=== PATIENT | male | born 1960 | race Caucasian/White ===

== ENCOUNTER 2018-08-22 14:42 | Outpatient (REF) | payer MEDICAID, SELFPAY ==
[2018-08-22 20:13] LABS: Folate 9.9 ng/mL (8.6-20.0); Vitamin B12 370 pg/mL (193-986)
[2018-08-24 12:32] LABS: HSV Type 1 Ab, IgG Positive; HSV Type 2 Ab, IgG Negative
== END 2018-08-22 15:02 ==
LOC: NCHCN 14:42
PROVIDERS: PCP Physician Assistant; Visit Provider Internal Medicine
DX: F10.20 Alcohol dependence, uncomplicated (principal); A60.00 Herpesviral infection of urogenital system, unspecified; Z11.59 Encounter for screening for other viral diseases
CPT/HCPCS: 82607; 82746; 86695; 86696

== ENCOUNTER 2019-03-08 08:27 | Outpatient (REF) | payer MEDICAID, SELFPAY ==
[2019-03-08 20:10] LABS: HCT 42.6 % (40.0-50.0); HGB 14.2 g/dL (13.5-17.5); Mean Corp. HGB Concentration 33.3 g/dL (32.0-36.0); Mean Corpuscular Hemoglobin 29.7 pg (27.0-33.0); Mean Corpuscular Volume 89.1 fL (80-95); Mean Platelet Volume 13.4 fL (8.0-11.0); Platelet Count 117 x1000/uL (130-400); RBC 4.78 m/cumm (4.50-6.00); RBC Distribution Width 14.2 % (11.8-14.1); White Blood Cell Count 3.36 k/cumm (4.4-10.8)
[2019-03-08 20:26] LABS: ALT 47 U/L (12-78); AST 36 U/L (15-37); Albumin 3.9 g/dL (3.4-5.0); Alkaline Phosphatase 80 U/L (46-116); BUN 12 mg/dL (7-18); Bilirubin, Total 0.5 mg/dL (0.2-1.0); CREATININE 0.95 mg/dL (0.70-1.30); Calcium 8.8 mg/dL (8.5-10.1); Chloride 107 mmol/L (98-107); Glucose 88 mg/dL (70-100); Potassium 4.4 mmol/L (3.5-5.1); Sodium 142 mmol/L (136-145); Total Protein 6.1 g/dL (6.4-8.2)
[2019-03-10 10:36] LABS: Hepatitis C Ab w Rflx HCV PCR Negative (NEGAT)
[2019-03-10 10:46] LABS: HIV-1/2 Ag & Ab Screen Negative (NEGAT)
[2019-03-10 12:32] LABS: Chlamydia Result Negative; GC Result Negative; Specimen Description URINE
[2019-03-10 12:34] LABS: Syphilis Serology (RPR) Negative (Negative)
== END 2019-03-08 08:47 ==
LOC: NCHCN 08:27
PROVIDERS: PCP Physician Assistant; Visit Provider Physician Assistant Medical
DX: I10 Essential (primary) hypertension (principal); Z11.3 Encounter for screening for infections with a predominantly sexual mode of transmission; Z11.4 Encounter for screening for human immunodeficiency virus [HIV]; Z11.59 Encounter for screening for other viral diseases
CPT/HCPCS: 80053; 85027; 86803; 87389; 87491; 87591; 86592

== ENCOUNTER 2019-04-27 09:32 | Outpatient (REF) | payer MEDICAID, SELFPAY ==
[2019-04-27 18:52] LABS: Absolute Basophil Count 0.02 k/cumm (0.0-0.2); Absolute Eosinophil Count 0.12 k/cumm (0.0-0.7); Absolute Lymphocyte Count 1.09 k/cumm (1.2-3.4); Absolute Monocyte Count 0.38 k/cumm (0.11-0.7); Absolute Neutrophil Count 2.22 k/cumm (1.2-6.7); Basophils % 0.5; Eosinophils % 3.1; HCT 42.9 % (40.0-50.0); Lymphocytes % 28.5; Mean Corpuscular Hemoglobin 29.9 pg (27.0-33.0); Mean Corpuscular Volume 85.5 fL (80-95); Mean Platelet Volume 13.3 fL (8.0-11.0); Monocytes % 9.9; Platelet Count 147 x1000/uL (130-400); RBC 5.02 m/cumm (4.50-6.00); RBC Distribution Width 12.3 % (11.8-14.1); White Blood Cell Count 3.83 k/cumm (4.4-10.8)
== END 2019-04-27 09:52 ==
LOC: NCHCN 09:32
PROVIDERS: PCP Physician Assistant; Visit Provider Internal Medicine
DX: D69.6 Thrombocytopenia, unspecified (principal)
CPT/HCPCS: 85025

== ENCOUNTER 2019-08-15 13:02 | Outpatient (REF) | payer MEDICAID, SELFPAY ==
[2019-08-15 20:01] LABS: Anion Gap 8.7 mmol/L (3-11); BUN 9 mg/dL (7-18); CO2 27.3 mmol/L (21.0-32.0); CREATININE 0.91 mg/dL (0.70-1.30); Calcium 8.9 mg/dL (8.5-10.1); Chloride 109 mmol/L (98-107); Glucose 96 mg/dL (74-106); Magnesium 1.9 mg/dL (1.8-2.4); Potassium 4.1 mmol/L (3.5-5.1); Sodium 145 mmol/L (136-145); Vitamin B12 631 pg/mL (193-986)
[2019-08-15 20:06] LABS: Folate > 20.0 ng/mL (8.6-20.0)
== END 2019-08-15 13:22 ==
LOC: NCHCN 13:02
PROVIDERS: PCP Physician Assistant; Visit Provider Nurse Practitioner Family
DX: I10 Essential (primary) hypertension (principal); F10.20 Alcohol dependence, uncomplicated
CPT/HCPCS: 80048; 82607; 82746; 83735

== ENCOUNTER 2020-08-28 09:47 | Outpatient (REF) | payer MEDICAID, SELFPAY ==
[2020-08-28 21:08] LABS: Anion Gap 7.6 mmol/L (3-11); BUN 14 mg/dL (7-18); CO2 28.4 mmol/L (21.0-32.0); CREATININE 1.03 mg/dL (0.70-1.30); Calcium 9.2 mg/dL (8.5-10.1); Chloride 105 mmol/L (98-107); Glucose 103 mg/dL (74-106); Potassium 4.4 mmol/L (3.5-5.1); Sodium 141 mmol/L (136-145)
[2020-08-29 17:45] LABS: PSA, Screening 0.8 ng/mL (0.0-3.5)
== END 2020-08-28 10:07 ==
LOC: NCHCN 09:47
PROVIDERS: PCP Physician Assistant; Visit Provider Nurse Practitioner Family
DX: I10 Essential (primary) hypertension (principal); Z12.5 Encounter for screening for malignant neoplasm of prostate
CPT/HCPCS: 80048; 84153

== ENCOUNTER 2022-06-25 21:16 | Outpatient (REF) | payer MEDICAID, SELFPAY ==
[2022-06-25 19:58] LABS: ALT 38 U/L (16-63); AST 31 U/L (15-37); Albumin 4.3 g/dL (3.4-5.0); Alkaline Phosphatase 55 U/L (46-116); Anion Gap 7.7 mmol/L (3-11); BUN 17 mg/dL (7-18); Bilirubin, Total 0.8 mg/dL (0.2-1.0); CO2 28.3 mmol/L (21.0-32.0); Calcium 9.4 mg/dL (8.5-10.1); Chloride 102 mmol/L (98-107); Estimated GFR 86.16 (mL/min/1.73m2); Glucose 91 mg/dL (74-106); Potassium 4.5 mmol/L (3.5-5.1); Sodium 138 mmol/L (136-145); Total Protein 7.3 g/dL (6.4-8.2); Vitamin B12 522 pg/mL (193-986)
== END 2022-06-25 21:17 | disposition home or self-care (01) ==
LOC: NCHCN 21:16
PROVIDERS: PCP Physician Assistant; Visit Provider Nurse Practitioner Family
DX: F10.21 Alcohol dependence, in remission (principal); R53.83 Other fatigue
CPT/HCPCS: 80053; 82607

== ENCOUNTER 2024-01-13 18:01 | Outpatient (REF) | payer MEDICAID, SELFPAY ==
[2024-01-13 19:18] LABS: HCT 44.9 % (40.0-50.0); HGB 15.4 g/dL (13.5-17.5); MCH 28.9 pg (27.0-33.0); MCHC 34.3 % (32.0-36.0); MCV 84 fL (80-95); MPV 12.5 fL (8.0-11.0); Platelet Count 148 10^3/uL (130-400); RBC 5.32 10^6/uL (4.36-5.78); RDW 12.9 % (11.8-14.1); RDW-SD 39.5 fL; WBC 7.77 10^3/uL (4.4-10.8)
[2024-01-13 19:35] LABS: Glucose 89 mg/dL (74-106); TSH 1.64 uIU/Ml (0.36-3.74); Uric Acid 7.1 mg/dL (3.5-7.2)
== END 2024-01-13 18:02 | disposition home or self-care (01) ==
LOC: NCHCN 18:01
PROVIDERS: PCP Physician Assistant; Visit Provider Internal Medicine
DX: R53.83 Other fatigue (principal); M10.9 Gout, unspecified; E66.3 Overweight
CPT/HCPCS: 82947; 85027; 84443; 84550

== ENCOUNTER 2024-04-07 14:51 | Outpatient (REF) | payer OTHER, SELFPAY ==
--- OUTSIDE RECORDS SUMMARY | 2024-04-07 14:52 | XMS_ITS | Encounter Summary ---
Author Organization [facility] Address [address] [place] [address] Care Team Providers Care Fast Food Crew Member Name Role Phone Judson Mendoza MD Primary Care Provider [phone] Encounter Details Date Type Department Care Team (Late st Contact Info) Description 08/29/2020 Lab Requisition [facility] Pathology & Laboratory Medicine - [address] [id number] Outr Resulting Lab, Provider Social History Tobacco Use Types Packs/Day Years Used Date Smoking Tobacco: Never Assessed Interpersonal Safety Answer Date Record ed Physically Hurt Never 04/22/2020 Verbally Threaten Not on file 04/22/2020 Sex and Gender Information Value Date Recorded Sex Assigned at Not on file Gender Identity Not on file Sexual Orientation Not on file documented as of this encounter Plan of Treatment Not on file documented as of this encounter Procedures Procedure Name Priority Date/Time Associated Diagnosis Comments PSA TOTAL, DIAGNOSTIC Routine 08/28/2020 8:30 EST documented in this encounter Results * PSA TOTAL, DIAGNOSTIC (08/28/2020 8:30 EST) PSA 0.8 0.0 - 3.5 ng/mL 08/29/2020 17:40 EST [facility] Blood VENOUS BLOOD / Unknown 08/28/2020 8:30 EST 08/29/2020 16:22 EST Narrative [facility] - 08/29/2020 17:40 EST NOTE: Serum PSA concentration should not be interpreted as absolute evidence for the presence or absence of malignant disease. Assayed on Siemens ADVIA Centaur XPT using chemiluminescent technology.??Values obtained by using different assay methods cannot be used interchangeably. Provider Outr Resulting Lab CHEMISTRY & BLOOD GAS ORDERABLES [facility] [address] [place] [address] documented in this encounter Visit Diagnoses Not on filedocumented in this encounter Care Teams Fast Food Crew Member Relationship Specialty Start Date End Date Judson Mendoza MD [address] [place] [address] PCP - General 06/07/17 documented as of this encounter
--- OUTSIDE RECORDS SUMMARY | 2024-04-07 14:52 | XMS_ITS | Clinical Summary ---
Author Organization [facility] Address [address] [place] [id number] Care Team Providers Care Trade Analyst Name Role Phone Judson Mendoza MD Primary Care Provider [phone] Medications Medication Sig Dispensed Refills Start Date End Date Status diazePAM (VALIUM) 10 mg tablet Take according to [facility] protocol to be filled by Act I staff only 15 Tab 06/07/2017 Active Active Problems No known active problems Social History Tobacco Use Types Packs/Day Years Used Date Smoking Tobacco: Never Assessed Interpersonal Safety Answer Date Record ed Physically Hurt Never 04/22/2020 Verbally Threaten Not on file 04/22/2020 Sex and Gender Information Value Date Recorded Sex Assigned at Not on file Gender Identity Not on file Sexual Orientation Not on file Last Filed Vital Signs Vital Sign Reading Time Taken Comments Blood Pressure 144/88 06/07/2017 1040 EDT Pulse 76 06/07/2017 1040 EDT Temperature 36.5 ??C (97.7 ??F) 06/07/2017 1040 EDT Respiratory Rate 16 06/07/2017 1040 EDT Oxygen Saturation 98% 06/07/2017 1040 EDT Inhaled Oxygen Concentration - - Weight - - Height - - Body Mass Index - - Plan of Treatment Health Maintenance Due Date Last Done Comments Hepatitis C Screen 1960 RSV Immunization ( o r 60+ Years) (1 - 1-dose 60+ series) 2021 COVID-19 Vaccine ( - 2022-24 season) 2023 Care Teams Trade Analyst Relationship Specialty Start Date End Date Judson Mendoza MD [address] [place], [place] [address] [facility] - General 06/07/17
--- OUTSIDE RECORDS SUMMARY | 2024-04-07 14:52 | XMS_ITS | Encounter Summary ---
Author Organization [facility] Address [address] [place] [address] Care Team Providers Care Rodding Machine Tender Name Role Phone Judson Mendoza MD Primary Care Provider [phone] Reason for Visit * Reason Comments Act 1 Clearance Patient arrives for Act 1 clearance. States his last drink was an hour ago. Currently drinking about a 12 pack per day. Encounter Details Date Type Department Care Team (Late st Contact Info) Description 06/07/2017 10:37 EDT - 06/07/2017 12:35 EDT Emergency [facility] Emergency Department - [address] [address] Alcon Kothari, PA-C [address] [place] [address], [address] [place] [phone] Emergency, MD Hilda Alcohol abuse (Primary Dx) Discharge Disposition: Discharged to Other Facility Social History Tobacco Use Types Packs/Day Years Used Date Smoking Tobacco: Never Assessed Sex and Gender Information Value Date Recorded Sex Assigned at Not on file Gender Identity Not on file Sexual Orientation Not on file documented as of this encounter Last Filed Vital Signs Vital Sign Reading Time Taken Comments Blood Pressure 144/88 06/07/2017 1040 EDT Pulse 76 06/07/2017 1040 EDT Temperature 36.5 ??C (97.7 ??F) 06/07/2017 1040 EDT Respiratory Rate 16 06/07/2017 1040 EDT Oxygen Saturation 98% 06/07/2017 1040 EDT Inhaled Oxygen Concentration - - Weight - - Height - - Body Mass Index - - documented in this encounter Discharge Diagnoses Diagnosis F10.10 Alcohol abuse, uncomplicated-F10.10[ICD-10-CM] documented in this encounter Discharge Instructions * Discharge Instructions* Alcon Kothari PA - 06/07/2017 12:22 EDT Medically cleared for Act I * Attachments The following attachments cannot be sent through Care Everywhere. * ALCOHOL - DRUG - OR POISON INGESTION (CHILEAN) documented in this encounter Medications at Time of Discharge Medication Sig Dispensed Refills Start Date End Date diazePAM (VALIUM) 10 mg tablet Take according to [facility] protocol to be filled by Act I staff only 15 Tab 06/07/2017 documented as of this encounter Ordered Prescriptions Prescription Sig Dispensed Refills Start Date End Da te diazePAM (VALIUM) 10 mg tablet Take according to [facility] protocol to be filled by Act I staff only 15 Tab 06/07/2017 documented in this encounter Discharge Disposition Disposition Code Departure Means Destination Discharged to Other Facility Home documented in this encounter ED Notes * Ирина Hill RN - 06/07/2017 1235 EDT D/C to [facility]. Awaiting transport in [facility]. Security has paperwork for the patient to be given to [facility] staff. * Alcon Kothari PA - 06/07/2017 1216 EDT DOS: 06/07/2017 Chief Complaint Patient presents with ??? Act 1 Clearance Patient arrives for Act 1 clearance. States his last drink was an hour ago. Currently drinking about a 12 pack per day. HPI The patient is a 56 y.o. male who presents today with Act 1 Clearance (Patient arrives for Act 1 clearance. States his last drink was an hour ago. Currently drinking about a 12 pack per day.) HPI Comments: 56-year-old male is sent here for Act I clearance. Patient drinks approximately 12 beers a day last drinking approximately an hour prior to my evaluation. He hassymptoms at this time. He states he may have had an alcoholic withdrawal seizure approximately 20 years ago but has never had one since. He has had hard withdrawals with shakiness nausea and vomiting. The history is provided by the patient. Act 1 Clearance Primary symptoms include no confusion. Pertinent negatives include no fever. Review of Systems Review of Systems Constitutional: Negative for chills and fever. HENT: Negative for congestion, sore throat and trouble swallowing. Eyes: Negative. Respiratory: Negative for chest tightness and shortness of breath. Cardiovascular: Negative. Negative for chest pain, palpitations and leg swelling. Gastrointestinal: Negative for abdominal distention and abdominal pain. Endocrine: Negative. Genitourinary: Negative. Negative for dysuria and flank pain. Musculoskeletal: Negative. Negative for arthralgias. Skin: Negative. Negative for color change and rash. Allergic/Immunologic: Negative. Negative for immunocompromised state. Neurological: Negative. Negative for dizziness and headaches. Hematological: Negative. Negative for adenopathy. Does not bruise/bleed easily. Psychiatric/Behavioral: Negative. Negative for confusion. All other systems reviewed and are negative. Allergies not on file Vital Signs Temp: 36.5 ??C (97.7 ??F) Temp src: Oral Pulse: 76 Resp: 16 SpO2: 98 % BP: (!) 144/88 BP Device: BP Machine Patient Position: Sitting BP Cuff Location: Right arm O2 Device: None (Room air) Physical Exam Constitutional: He is oriented to person, place, and time. He appears well- developed and well-nourished. HENT: Head: Normocephalic and atraumatic. Right Ear: External ear normal. Left Ear: External ear normal. Nose: Nose normal. Mouth/Throat: Oropharynx is clear and moist. Eyes: Pupils are equal, round, and reactive to light. Right eye exhibits no discharge. Left eye exhibits no discharge. Neck: Normal range of motion. Neck supple. No tracheal deviation present. Cardiovascular: Normal rate, regular rhythm and normal heart sounds. Pulmonary/Chest: Effort normal and breath sounds normal. No respiratory distress. He has no wheezes. He has no rales. Abdominal: Soft. He exhibits no distension. There is no tenderness. There is no rebound. Musculoskeletal: Normal range of motion. Neurological: He is alert and oriented to person, place, and time. He has normal strength. He is not disoriented. No cranial nerve deficit or sensory deficit. Coordination normal. Skin: Skin is warm and dry. No rash noted. Psychiatric: He has a normal mood and affect. His behavior is normal. Nursing note and vitals reviewed. RESULTS EKG orders: None Radiology orders: None ED Lab Results Labs Reviewed - No data to display Relevant Data Procedures ED COURSE A medical screening exam was performed. Patient is stable appearing in no acute distress quickly cleared for Act I ASSESSMENT AND PLAN Final diagnoses: Alcohol abuse DISPOSITION: Discharged The patient's pain was managed to an adequate level weighing risk vs. benefit of further medications. Upon departure from the Emergency Department, the patient's pain was on a zero to ten scale. Any further pain treatment will be at the discretion of the provider following up with the patient based on their clinical assessment. Condition at departure from the Emergency Department: Stable PCP: To Be Added Waiting MDM Ely Rondon was available for supervision. 06/07/2017 12:27 No flowsheet data found. * Favio Lorenzana - 06/07/2017 1038 EDT TCALL: HENRY BRIDGES 62 REFERRED TO ED BY MACHO FROM [facility] 1 FOR BRIDGE PROGRAM CLEARANCE. ALCOHOL DETOX, CURRENT GATO .205. (DJP) documented in this encounter Plan of Treatment Not on file documented as of this encounter Visit Diagnoses Diagnosis Alcohol abuse- Primary Alcohol abuse, unspecified documented in this encounter Care Teams Rodding Machine Tender Relationship Specialty Start Date End Date Judson Mendoza MD [address] [place] [id number] PCP - General 06/07/17 documented as of this encounter
--- OUTSIDE RECORDS SUMMARY | 2024-04-07 14:52 | XMS_ITS | Referral Summary ---
Author Organization [facility] Address [address] [place] [address] Care Team Providers Care Grill Associate Name Role Phone Judson Mendoza MD Primary Care Provider [phone] Medications Medication Sig Dispensed Refills Start Date End Date Status diazePAM (VALIUM) 10 mg tablet Take according to [facility] protocol to be filled by Act I [...] Mass Index - - Plan of Treatment Not on file Care Teams Grill Associate Relationship Specialty Start Date End Date Judson Mendoza MD [address] [place] [address] PCP - General 06/07/17
--- OUTSIDE RECORDS SUMMARY | 2024-04-07 14:53 | XMS_ITS | Continuity of Care Document ---
Author Organization [place] [facility] Address [address] [place] [address] Care Team Providers Care Engraving Patternmaker Name Role Phone RUBEN TOURE Dentist KIAH CLAYTON Primary Care Provider [phone] Assessment Encounter Date Assessment Date Assessment LastModified by Organization Details LastModified Time 04/07/2024 04/07/2024 The patient presents with a bump on the left knee, which is likely a fluid-filled bursa over the patella. The bursa has likely become irritated and filled with fluid due to chronic pressure from kneeling at work without proper protection. There is no sign of infection at this time. [email or web address] Not available 04/07/2024 14:44:34 Plan of Treatment Reminders Order Date Submit Date Provider Last Modified By Organization Details Last Modified Time Details Appointments Follow Up 30 2023 09:00A Chari LEÓN Not available Not available Not available Lab culture, body fluid - bloody fluid removed from prepatell ar bursitis, 4cc's removed 2023 024 ATHENAFAX [facility] (Registration ), [address] [place] [address] [place], [address], 04/07/2024 12:05:25 Referral None recorded. Procedures None recorded. Surgeries None recorded. Imaging None recorded. Medication Orders None recorded. Patient TargetsNo targets recorded. Patient Instructions Encounter Date Encounter Id Patient Instructions Last Modified By Organization Details Last Modified Time 04/07/2024 [id number] diet [email or web address] Not available 04/07 14:45:30 exercise [email or web address] Not available 2023 14:45:30 Reason for Referral None Reported. Problems Name Status Onset Date Resolution Date Notes Provider Name and Address Organization Details Recorded Time Right side sciatica Active 2015 Problem Code: M54.31; Problem Code Type: ICD-10; Not Available [facility] 3 05:39:18 Diabetes mellitus screening Completed 201512/17/2015 Problem Code: Z13.1; Problem Code Type: ICD-10; Not Available [facility] 3 05:39:18 Osteoarthriti s Active 2015 Problem Code: M19.90; Problem Code Type: ICD-10; Not Available [facility] 3 05:39:18 Gout Active 201303/29/2023 - Comments only - Kiah Clayton REPAIRER PUMP - s/p recent flare treated with colchicine and feeling much better. ? related to increased heat and humidity and poor hydration. Refill of colchicine given to use in the future. Encouraged good hydration while working in this heat. Avoid processed foods. Problem Code: M10.9; Problem Code Type: ICD-10; Not Available [facility] 3 05:39:18 General examination of patient Active 2016 Problem Code: Z00.8; Problem Code Type: ICD-10; Not Available [facility] 3 05:39:18 Chronic sinusitis Completed 201612/15/2016 Problem Code: J32.9; Problem Code Type: ICD-10; Not Available [facility] 3 05:39:18 Candidal balanitis Completed 201612/15/2016 Problem Code: B37.42; Problem Code Type: ICD-10; Not Available [facility] 3 05:39:19 Lateral epicondylitis of right humerus Completed 201608/27/2017 02/25/2017 - Comments only - Aydin Mcgrath PA-C - History and exam consistent with right lateral epicondylitis . Recommended home exercises. Patient instructed on stretching. Also ice, activity modification. Reviewed pathophysiolo gy and expected course. If not improving with conservative therapy then physical therapy referral. Problem Code: M77.11; Problem Code Type: ICD-10; Not Available [facility] 3 05:39:19 Anxiety disorder Active 201612/27/2019 - Comments only - Chelsey Vargas APRN - Reduction in OCD symptoms and overall worry daily. Reports response to the antidepressan t and I cautioned him about stopping it, as this would put him at risk for relapsing symptoms. Problem Code: F41.9; Problem Code Type: ICD-10; Not Available [facility] 3 05:39:19 Moderate major depression, single episode Active 201712/27/2019 - Comments only - Chelsey Vargas APRN - Reports he is realtively stable at this time. Denies ETOH use for several months and he is working He has declined counseling and AA meetings atre only on line currently. will send him the [employer] LINK number for resources. He continues Mirtazapine and feels it has helped with mood and anxiety. OCD symptoms reduced and he feels he can do his job well. His daughter is living with him and is a support in some ways. Problem Code: F32.1; Problem Code Type: ICD-10; Not Available [facility] 3 05:39:19 Rupture of rotator cuff of right shoulder Completed 201709/27/2018 01/25/2018 - Comments only - Aydin Mcgrath PA-C - Suspect rotator cuff tendinitis. Referral to physical therapy. If not better then consider injection and imaging. Problem Code: M75.101; Problem Code Type: ICD-10; Not Available [facility] 3 05:39:19 Benign prostatic hyperplasia Active 2017 Problem Code: N40.0; Problem Code Type: ICD-10; Not Available [facility] 3 05:39:20 Herpesvirus infection Active 201708/24/2018 - Comments only - Keturah Mendoza MD - Suspect that his impetigo is actually herpetic. However been unroofed for too long to get culture. Will get serology although I told him there are limitations to that. Too late for acyclovir to be helpful for this course. Problem Code: A60.00; Problem Code Type: ICD-10; Not Available [facility] 3 05:39:20 Lesion of left femoral nerve Completed 201806/15/2019 12/13/2018 - Comments only - Aydin Mcgrath PA-C - Suspect this is from pressure of sitting for long periods of time. Should resolve over 2-4 weeks. Recheck as needed. He is due for annual review. He will schedule. Problem Code: G57.22; Problem Code Type: ICD-10; Not Available [facility] 3 05:39:20 Venereal disease screening Completed 201804/12/2019 03/01/2019 - Comments only - Aydin Mcgrath PA-C - Patient requesting STD screening. Did recently from his . Problem Code: Z11.3; Problem Code Type: ICD-10; Not Available [facility] 3 05:39:20 Lumbosacral radiculopathy Completed 201810/05/2019 09/15/2019 - Comments only - Chelsey Vargas APRN - Chronic pain. Feels Gabapentin is not helpful at this time and has stopped it. This may be dose related and I have encouraged him to speak to his medical provider about options to dose increase. Problem Code: M54.16; Problem Code Type: ICD-10; Not Available [facility] 3 05:39:20 Thrombocytope sukhjinder disorder Active 201804/04/2019 - Comments only - Aydin Mcgrath PA-C - Repeat blood count 1 month from now. Suspect this was related to his alcohol use. Problem Code: D69.6; Problem Code Type: ICD-10; Not Available [facility] 3 05:39:20 Left side sciatica Active 201804/11/2019 - Comments only - Keturah Mendoza MD - I have not been drinking in 2 months I think he can take Celebrex safely. Can temporarily use it 200 mg twice daily. Warned to watch for GI upset. Can also use cyclobenzapri ne at night. Reassurance that this is likely to improve over time but it may be weeks to months. Too soon to consider reimaging. Try to stay as active as tolerated. Problem Code: M54.32; Problem Code Type: ICD-10; Not Available [facility] 3 05:39:21 Leukopenia Active 2018 Problem Code: D72.819; Problem Code Type: ICD-10; Not Available [facility] 3 05:39:21 Hypo-osmolali ty and or hyponatremia Active 201808/14/2019 - Comments only - Loni Becerra REPAIRER PUMP - Secondary to alcohol abuse. We will recheck sodium next week. I have encouraged him to drink 1 glass of V8 juice daily. Problem Code: E87.1; Problem Code Type: ICD-10; Not Available [facility] 3 05:39:21 Seasonal allergic rhinitis Active 201905/04/2020 - Comments only - Loni Becerra REPAIRER PUMP - His symptoms of feeling a bit in a fog and having some ear pressure could be from allergies and a bit of a bilateral serous effusion. Trial of loratadine. He can also try Flonase if he would like. He would like to start with the loratadine. He has not had any fevers, cough or shortness of breath. I do not think he needs to be tested today for coronavirus. If anything changes he will let me know and we are going to follow-up in 3 months. Problem Code: J30.2; Problem Code Type: ICD-10; Not Available [facility] 3 05:39:21 Sleep disorder Active 202001/17/24 - O2 ring normal overnight. DION unlikelyt though other sleep issues could be present. 02/17/2022 - Comments only - Kiah Clayton REPAIRER PUMP - encouraged completion of sleep study Problem Code: G47.9; Problem Code Type: ICD-10; KETURAH MENDOZA MD [address], [place], [address] , [place] [facility]. 4 10:17:04 Low back pain Active 202008/20/2021 - Comments only - Kiah Clayton REPAIRER PUMP - Will give short course of cyclobenzapri ne, not to operate heavy machinery if using. Try heat, ice, reviewed gentle stretching exercises, encouraged continued activity. Offered OOW note, he declines Problem Code: M54.59; Problem Code Type: ICD-10; Not Available [facility] 3 05:39:22 History of cardiovascula r disease Active 202008/20/2021 - Comments only - Kiah Clayton REPAIRER PUMP - Down 12 pounds since last visit. Had been running 2 miles every day all summer, now doing 8 miles on the stationary bike and eating a healthy diet. Blood pressure has been well controlled with out medication. Problem Code: Z86.79; Problem Code Type: ICD-10; Not Available [facility] 3 05:39:22 Chronic alcoholism in remission Active 202002/17/2022 - Comments only - Kiah Clayton REPAIRER PUMP - continues in sobriety Problem Code: F10.21; Problem Code Type: ICD-10; Not Available [facility] 3 05:39:22 Laceration of left thumb Completed 202111/27/2021 11/26/2021 - Comments only - Carol SWAN - - area of concern was flushed, no foreign body identified and no obvious damage to tendon. 3 steri-strips applied using benzoin. advised pt to keep clean and dry for 24-48 hours. clean dressing applied. advised pt to let the steri-strips fall off on their own which can take 7-10 days. discussed s/s of infection. Return to clinic if not improving or worsening symptoms Problem Code: S61.012A; Problem Code Type: ICD-10; Not Available [facility] 3 05:39:22 Hyperlipidemi a screening Active 202102/17/2022 - Comments only - Kiah Clayton REPAIRER PUMP - Check lipids, is eating healthy diet, down 4.5 pounds, working a physically demanding job Problem Code: Z13.220; Problem Code Type: ICD-10; Not Available [facility] 3 05:39:23 Nocturia Active 202109/03/2022 - Comments only - Kiah Clayton REPAIRER PUMP - Has not yet tried increase in Flomax. Will let me know if no improvement Problem Code: R35.1; Problem Code Type: ICD-10; Not Available [facility] 3 05:39:23 Fatigue Active 2021 Problem Code: R53.83; Problem Code Type: ICD-10; Not Available [facility] 3 05:39:23 Heartburn Active 202109/03/2022 - Comments only - Kiah Clayton REPAIRER PUMP - Improved with d/c of caffeniated, carbonated beverage and start of omeprazole. Discussed taper off omeprazole as tolerated. Did give him one refill. 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; Problem Code Type: ICD-10; Not Available [facility] 3 05:39:24 Alcohol abuse Completed 200106/16/2023 Not Available [facility] 3 05:39:25 Disorder of skin and/or subcutaneous tissue Completed 201503/01/2019 Problem Code: L98.9; Problem Code Type: ICD-10; Not Available [facility] 3 05:39:26 History of clinical finding in subject Completed 200103/01/2019 Problem Code: Z87.898; Problem Code Type: ICD-10; Not Available [facility] 3 05:39:29 Screening for malignant neoplasm of prostate Completed 201908/20/2021 Problem Code: Z12.5; Problem Code Type: ICD-10; Not Available [facility] 3 05:39:30 Hypertensive disorder Completed 200106/16/2023 Not Available [facility] 3 05:39:31 Pain in right hand Completed 201603/01/2019 Problem Code: M79.641; Problem Code Type: ICD-10; Not Available [facility] 3 05:39:31 Essential hypertension Completed 200108/20/2021 Problem Code: I10; Problem Code Type: ICD-10; Not Available [facility] 3 05:39:32 Alcohol dependence Completed 201703/01/2019 Problem Code: F10.259; Problem Code Type: ICD-10; Not Available [facility] 3 05:39:37 Acquired trigger finger Active [address], [place] [id number] , [facility] 4 15:21:01 Obesity Active [address], [address] 4 18:05:12 Notes:*Problem Name: Penetra ting wound of orbit with or without foreign body, left eye, initial encounter *Problem Status: active *Comments: *Problem Code: S05.42xA *Problem Code Type: ICD-10 *Note Date: 03/09/2023 Problem Notes None recorded. Procedures Surgical History Date Name Laterality Status Provider Name and Address Organization Details Recorded Time 04/07/20 24 Arthrocentesis Major Joint/Bursa completed MIHAELA [address] Dr, [address] 04/07/2024 14:44:07 11/18/19 24 Corticosteroid Injection, small completed MD Jonny CARRASCO Dr, [address] 11/18/2023 15:41:46 Imaging Results None recorded. Procedure Notes None recorded. Medical Equipment None Reported. Allergies Allergen ID Allergen Name Allergen Category Reaction Reaction Severity Criticality Documentation Date Start Date Code Code System Note Provider Name and Address Organization Details Recorded Time 18719 ibuprofen medicatio n hives moderate Not available 07/30/20232010 5640 RxNorm urtic aria Pat bains [facility] 4 14:45:45 Medications Name Sig Start Date Stop Date Status Note LastModified by Organization Details LastModified Time cyclobenz aprine 10 mg tablet Take 1 tab by mouth at bedtime as needed for back spasm 05/18 completed Not Available Not Available Not Available Flomax 0.4 mg capsule Take 1 capsule by mouth every night 07/29 completed Not Available Not Available Not Available prednison e 10 mg tablet 4 tabs x 3 days, 3 tabs x 3 days, 2 tabs x 3 days and 1 tab x 3 days 04/10 completed Not Available Not Available Not Available doxycycli ne hyclate 100 mg capsule Take 2 capsule by mouth single dose 03/06 completed Not Available Not Available Not Available hydrocodo ne 5 mg-acetam inophen 325 mg tablet Take 1 tab by mouth four times daily as needed for pain 12/29 completed Not Available Not Available Not Available naltrexon e 50 mg tablet One tablet once a day 04/10 completed Not Available Not Available Not Available Medrol (Roger) 4 mg tablets in a dose pack 1 TAB DIRECTED 04/01 completed Not Available Not Available Not Available Indocin 25 mg capsule 1 CAP TID 10/12 completed Not Available Not Available Not Available Zithromax 250 mg tablet Take 2 by mouth today, then take 1 by mouth daily x 4 days 11/22 completed Not Available Not Available Not Available omeprazol e 40 mg capsule,d elayed release Take 1 capsule by mouth once a day on empty stomach 30 minutes before eating 11/23 completed Not Available Not Available Not Available amoxicill in 500 mg tablet Take one tab by mouth three times a day 06/05 completed Dental prescrip tion Not Available Not Available Not Available Celebrex 200 mg capsule Take 1 cap by mouth twice daily 05/18 completed Not Available Not Available Not Available oxycodone -acetamin ophen 5 mg-325 mg tablet Take 1 tab by mouth three times daily as needed for pain 04/06 completed Not Available Not Available Not Available Guaiatuss in AC 10 mg-100 mg/5 mL oral liquid Take 1-2 tsp by mouth every six hours as needed for cough 02/25 completed Not Available Not Available Not Available Prozac 20 mg capsule one tab once a day 10/27 completed Not Available Not Available Not Available gabapenti n 300 mg capsule take one capsule every morning 08/07 completed Not Available Not Available Not Available cephalexi n 500 mg tablet Take 1 tab by mouth four times daily 05/06 completed Not Available Not Available Not Available lisinopri l 5 mg tablet Take 1 tab by mouth daily 08/07 completed Not Available Not Available Not Available mirtazapi ne 15 mg tablet Take one QHS. 04/30 completed Not Available Not Available Not Available gabapenti n 100 mg capsule Take 1 cap by mouth three times daily 2018 active Not Available Not Available Not Avai lable lorazepam 1 mg tablet One tab twice daily as needed (fill at [facility]) 08/21 completed Not Available Not Available Not Available colchicin e 0.6 mg tablet TAKE 2 TABLETS BY MOUTH AT ONSET OF FLARE, FOLLOWED BY ONE TABLET AFTER 1 HOUR; MAX 1.8 MG/DAY ONE. FOLLOWED BY 1 TO 2 TABLETS DAILY UNTIL F active Not Available Not Available No t Available Atarax 25 mg tablet 11/08 completed Not Available Not Available Not Available loratadin e 10 mg tablet Take 1 tablet by mouth once a day 2019 active Not Available Not Available Not Avai lable diazepam 5 mg tablet one tab every 8 hours as needed for anxiety 10/08 completed Not Available Not Available Not Available Bactrim DS 800 mg-160 mg tablet 1 TAB BID 04/06 completed Not Available Not Available Not Available ciclopiro x 0.77 % topical cream apply bid to genital area 02/25 completed Not Available Not Available Not Available cyclobenz aprine 5 mg tablet Take 1 tablet by mouth every eight hours as needed for pain, do not operate heavy machiner y while taking, use sparingl y 02/17 completed Not Available Not Available Not Available mirtazapi ne 7.5 mg tablet take one PO at HS 2018 active Not Available Not Available Not Avai lable Vitamin C 1 qd 05/20 completed Not Available Not Available Not Available Tylenol-C odeine #3 1-2TAB every six hours 09/17 completed Not Available Not Available Not Available multivita min 1 tab a day 04/10 completed Not Available Not Available Not Available Vicodin 5 mg-300 mg tablet 1CAP every six hours 12/15 completed Not Available Not Available Not Available Loprox apply bid 05/20 completed Not Available Not Available Not Available colchicin e 0.6 mg capsule Take 1 capsule by mouth once a day 1.2 mg (2 capsules ) at onset of flare, followed by 0.6 mg after 1 hour. Max 1.8mg/Da y one. Followed by 0.6 mg 1-2 x daily until flare resolves , max of 3 days 06/27 completed Not Available Not Available Not Available Vitals Date Recorded Body height Body mass index (BMI) Body weight Oxygen saturation Oxygen saturation in Arterial blood by Pulse oximetry Heart rate Systolic blood pressure Diastolic blood pressure Provider Name and Address Organization Details Last Updated DateTime 4 170.18 cm 30.4 kg/m2 76266.2 6 g 99 % 99 % 54 /min 122 mm[Hg] 86 mm[Hg] Gerardo Guerrero RN [facility] 4 08:49:46 Social History Question Answer Notes LastModified by Organizat ion Details LastModified Time Tobacco Smoking Status Former Smoker PRINCESS CHOW LPN null, [facility] 11/18/2023 14:52:15 When Did You Quit Smoking? 16+yearssinc elastcigaret te Information not available 11/18/2023 What Was The Date Of Your Most Recent Tobacco Screening? 11/18/2023 Information not available 11/18/2023 Sex: Male Functional Status None recorded. Mental Status None recorded. Family History Relationship Description Onset Age of this Age Resolved Age Notes Mother Family history of Hypercholesterolemia Mother Family history of malignant neoplasm Father Family history of malignant neoplasm Prostate CA Father Family history of he art failure murmur & pacemaker Notes:*Problem: 10/08/16 Fat her living, in his 80s, w/ prostate cancer. No other cancer or CAD. Mother of some kind of cancer at age 75. One sister in good health. D. 2019 heart Medical History No medical history recorded. Immunizations Vaccine Type Date Status Provider Name and Address Organization Details Recorded Time Td (adult), 2 Lf tetanus toxoid, preservative free, adsorbed 03/26/2021 completed Not Available [facility] 07/30/2023 05:06:52 Tdap 11/26/2010 completed Not Available [facility] 05:06:52 Novel [id number], all formulations 10/02/2009 completed Not Available [facility] 07/30/2023 05:06:53 Influenza, split virus, trivalent, preservative 06/04/2016 completed Not Available [facility] 07/30/2023 05:06:53 Influenza, split virus, trivalent, preservative 06/21/2015 completed Not Available [facility] 07/30/2023 05:06:54 Influenza, split virus, quadrivalent, PF 06/18/2020 completed Not Available [facility] 07/30/2023 05:06:54 Influenza, split virus, quadrivalent, PF 06/25/2022 completed Not Available [facility] 07/30/2023 05:06:55 Influenza, split virus, quadrivalent, PF 07/15/2021 completed Not Available [facility] 07/30/2023 05:06:56 Influenza, split virus, quadrivalent, PF 08/10/2019 completed Not Available [facility] 07/30/2023 05:06:56 Influenza, split virus, quadrivalent, preservative 06/21/2017 completed Not Available [facility] 07/30/2023 05:06:56 Influenza, split virus, quadrivalent, preservative 07/08/2018 completed Not Available [facility] 07/30/2023 05:06:57 zoster recombinant 10/10/2020 completed Not Available [facility] 07/30/2023 05:06:57 zoster recombinant 08/07/2020 completed Not Available [facility] 07/30/2023 05:06:57 COVID-19, mRNA, LNP-S, PF, 100 mcg/0.5mL dose or 50 mcg/0.25mL dose 01/02/2022 completed Not Available [facility] 07/30/20 05:06:58 COVID-19, mRNA, LNP-S, PF, 100 mcg/0.5mL dose or 50 mcg/0.25mL dose 01/19/2021 completed Not Available [facility] 07/30/20 05:06:58 COVID-19, mRNA, LNP-S, PF, 100 mcg/0.5mL dose or 50 mcg/0.25mL dose 02/19/2021 completed Not Available [facility] 07/30/20 05:06:58 COVID-19, mRNA, LNP-S, PF, 100 mcg/0.5mL dose or 50 mcg/0.25mL dose 08/08/2021 completed Not Available [facility] 07/30/20 05:06:58 COVID-19, mRNA, LNP-S, bivalent, PF, 30 mcg/0.3 mL dose 07/08/2022 completed Not Available [facility] 07/30/2023 05:07:00 Influenza, split virus, quadrivalent, PF 07/09/2023 completed Not Available [facility] 10/01/2023 05:31:43 Past Encounters Encounter ID Performer Location Encounter Start Date Encounter Closed Date Diagnosis/Indication Diagnosis SNOMED-CT Code [id number] CAROL LEÓN PA-C [address] [address] 04/07/2024 08:43:17 04/07/2024 09:23:34 Obesity 054608619 Prepatella r bursitis of left knee [id number] Health Concerns Section Related Observation LastModified by Organization Detai ls LastModified Time None Recorded Concern Status LastModified by Organization Details LastModified Time None Recorded Payers Encounter Date Sequence Insurance Name Policy Number Policy Boyd Covered Member ID Boyd Member ID Guarantor Name 04/07/2024 1 [facility] [id number] Henry Burnett [id number] Henry Burnett Notes Date Note Type Note Provider Name and Address Organization Details Recorded Time 04/07/2024 text/html HPI Notes: Kang nt presents with a bump on the left knee. Bump on left knee: The patient is a 63-year-old male who reports having a bump on his left knee for approximately three months. He initially thought it was a callus due to frequent kneeling at work and knee impact. As time progressed, the bump became uncomfortable to kneel on and is now numb with tenderness around it. He reports no known injury or inciting incident. He has not sought prior medical care for this issue. He notes the bump is soft and squishy feeling CAROL LEÓN PA-C [address], [place], [address], [facility]. 04/07/2024 14:46:33
--- OUTSIDE RECORDS SUMMARY | 2024-04-07 14:53 | XMS_ITS | Data Portability ---
Author Organization [place] - [facility] [place] [address] Care Team Providers Care Wheel Press Operator Name Role Phone RUBEN TOURE Dentist KIAH MOY Primary Care Provider [phone] Assessment Encounter Date Assessment Date Assessment LastModified by Organization Details LastModified Time 11/18/2023 11/18/2023 I will have them come back about the Not available 11/18/2023 15:37:58 02/17/2024 02/17/2024 The patient's right knee pain and swelling are likely due to an acute injury sustained from landing hard on the knee during a jog. There is no evidence of significant damage to the ligaments or other knee structures. The patient's symptoms have improved over time, but he still experiences pain and swelling, indicating that the injury has not fully resolved. [id number] Not available 02/17/2024 15:13:31 04/07/2024 04/07/2024 The patient presents with a [...] Last Modified Time Details Appointments Follow Up 2023 09:00A Chari LEÓN Not available Not available Not available Lab uric acid, serum or plasma [address] [facility] (Registration ), [address] [place] [address] [facility] [place], [address], 01/18/2024 08:16:25 glucose, QN [mass/vol ume], serum or plasma [address] [facility] (Registration ), [address] [place] [address] [place], [address], 01/18/2024 08:16:54 TSH, serum or plasma [address] [facility] (Registration ), [address] [place] [address] [place], [address], 01/18/2024 08:16:39 CBC 2023 024 [facility] (Registration ), [address] [place] [address] [facility] [place], [address], 01/13/2024 19:22:01 culture, body fluid - bloody fluid removed from prepatell ar bursitis, 4cc's removed [address] [facility] (Registration ), [address] [place] [address] [facility] [place], [address], 04/07/2024 12:05:25 Referral None recorded. Procedures None recorded. Surgeries None recorded. Imaging None recorded. Medication Orders colchicin e 0.6 mg tablet 2023 024 [id number], [address] [facility], [place], [address], 01/13/2024 15:14:19 Patient TargetsNo targets recorded. Patient Instructions Encounter Date Encounter Id Patient Instructions Last Modified By Organization Details Last Modified Time 01/13/2024 [id number] diet [email or web address] Not available 01/12 18:05:38 When You Want to Lose Weight: Care Instructions Not available 01/13/2024 18:05:38 04/07/2024 [id number] diet [email or web address] Not available 04/07 14:45:30 exercise [email or web address] Not available 2023 14:45:30 Reason for Referral None Reported. Results Created Date Observation Date Name Description Value Unit Range Abnormal Flag LastModifiedBy Organization Detail LastModifiedTime 01/13/20 24 01/13/2024 COMPL ETE BLOOD COUNT NO DIFF WBC 7.77 10_3/ uL 4.4-10 .8 normal Not Available [address] [place], [address] 01/13/2024 19:22:01 01/13/20 24 01/13/2024 COMPL ETE BLOOD COUNT NO DIFF RBC 5.32 10_6/ uL 4.36-5 .78 normal Not Available [address] [place], [address] 01/13/2024 19:22:01 01/13/20 24 01/13/2024 COMPL ETE BLOOD COUNT NO DIFF HGB 15.4 g/dL 13.5-1 7.5 normal Not Available [address] [place], [address] 01/13/2024 19:22:01 01/13/20 24 01/13/2024 COMPL ETE BLOOD COUNT NO DIFF HCT 44.9 % 40.0-5 0.0 normal Not Available [address] [place], [address] 01/13/2024 19:22:01 01/13/20 24 01/13/2024 COMPL ETE BLOOD COUNT NO DIFF MCV 84 fL 80-95 normal Not Available [facility] w[facility] [address] [place], [address] 01/13/2024 19:22:01 01/13/20 24 01/13/2024 COMPL ETE BLOOD COUNT NO DIFF MCH 28.9 pg 27.0-3 3.0 normal Not Available [address] [place], [address] 01/13/2024 19:22:01 01/13/20 24 01/13/2024 COMPL ETE BLOOD COUNT NO DIFF MCHC 34.3 % 32.0-3 6.0 normal Not Available [address] [place], [address] 01/13/2024 19:22:01 01/13/20 24 01/13/2024 COMPL ETE BLOOD COUNT NO DIFF RDW 12.9 % 11.8-1 4.1 normal Not Available [address] [place], [address] 01/13/2024 19:22:01 01/13/20 24 01/13/2024 COMPL ETE BLOOD COUNT NO DIFF platelet count 148 10_3/ uL 130-40 0 normal Not Available [address] [place], [address] 01/13/2024 19:22:01 01/13/20 24 01/13/2024 COMPL ETE BLOOD COUNT NO DIFF MPV 12.5 fL 8.0-11 .0 high Not Available [address] [place], [address] 01/13/2024 19:22:01 01/13/20 24 01/13/2024 GLUCO SE glucose 89 mg/dL 74-106 normal Not Available [address] [place], [address] 01/13/2024 19:41:05 01/13/20 24 01/13/2024 URIC ACID uric acid 7.1 mg/dL 3.5-7. 2 normal Not Available [address] [place], [address] 01/13/2024 19:41:05 01/13/20 24 01/13/2024 TSH TSH 1.64 uIU/m L 0.36-3 .74 normal Not Available [address] [place], [address] 01/13/2024 19:41:05 Result Notes None recorded. Problems Name Status Onset Date Resolution Date Notes Provider Name and Address Organization Details Recorded Time Right side sciatica Active 2015 Problem Code: M54.31; Problem Code Type: ICD-10; Not Available [facility] 3 05:39:18 Diabetes mellitus screening Completed 201512/17/2015 Problem Code: Z13.1; Problem Code Type: ICD-10; Not Available [facility] 3 05:39:18 Osteoarthriti s Active 2015 Problem Code: M19.90; Problem Code Type: ICD-10; Not Available [facility] 3 05:39:18 Gout Active 201303/29/2023 - Comments only - Kiah Moy DISTRIBUTION SYSTEM OPERATOR - s/p recent flare treated with colchicine and feeling much better. ? related to increased heat and humidity and poor hydration. Refill of colchicine given to use in the future. Encouraged good hydration while working in this heat. Avoid processed foods. Problem Code: M10.9; Problem Code Type: ICD-10; Not Available [facility] 3 05:39:18 General examination of patient Active 2016 Problem Code: Z00.8; Problem Code Type: ICD-10; Not Available [facility] 3 05:39:18 Chronic sinusitis Completed 201612/15/2016 Problem Code: J32.9; Problem Code Type: ICD-10; Not Available [facility] 3 05:39:18 Candidal balanitis Completed 201612/15/2016 Problem Code: B37.42; Problem Code Type: ICD-10; Not Available [facility] 3 05:39:19 Lateral epicondylitis of right humerus Completed 201608/27/2017 02/25/2017 - Comments only - Aydin Mcgrath PA-C - History and exam consistent with right lateral epicondylitis . Recommended home exercises. Patient instructed on stretching. Also ice, activity modification. Reviewed pathophysiolo gy and expected course. If not improving with conservative therapy then physical therapy referral. Problem Code: M77.11; Problem Code Type: ICD-10; Not Available [facility] 3 05:39:19 Anxiety disorder Active 201612/27/2019 - Comments only - Chelsey Vargas APRN - Reduction in OCD symptoms and overall worry daily. Reports response to the antidepressan t and I cautioned him about stopping it, as this would put him at risk for relapsing symptoms. Problem Code: F41.9; Problem Code Type: ICD-10; Not Available [facility] 3 05:39:19 Moderate major depression, single episode Active 201712/27/2019 - Comments only - Chelsey Vargas BOLIVAR - Reports he is realtively stable at this time. Denies ETOH use for several months and he is working He has declined counseling and AA meetings atre only on line currently. will send him the [employer] LINK number for resources. He continues Mirtazapine and feels it has helped with mood and anxiety. OCD symptoms reduced and he feels he can do his job well. His daughter is living with him and is a support in some ways. Problem Code: F32.1; Problem Code Type: ICD-10; Not Available [facility] 3 05:39:19 Rupture of rotator cuff of right shoulder Completed 201709/27/2018 01/25/2018 - Comments only - Aydin Mcgrath PA-C - Suspect rotator cuff tendinitis. Referral to physical therapy. If not better then consider injection and imaging. Problem Code: M75.101; Problem Code Type: ICD-10; Not Available [facility] 3 05:39:19 Benign prostatic hyperplasia Active 2017 Problem Code: N40.0; Problem Code Type: ICD-10; Not Available [facility] 3 05:39:20 Herpesvirus infection Active 201708/24/2018 - Comments only - Keturah Gann MD - Suspect that his impetigo is actually herpetic. However been unroofed for too long to get culture. Will get serology although I told him there are limitations to that. Too late for acyclovir to be helpful for this course. Problem Code: A60.00; Problem Code Type: ICD-10; Not Available [facility] 3 05:39:20 Lesion of left femoral nerve Completed 201806/15/2019 12/13/2018 - Comments only - Aydin Mcgrath PA-C - Suspect this is from pressure of sitting for long periods of time. Should resolve over 2-4 weeks. Recheck as needed. He is due for annual review. He will schedule. Problem Code: G57.22; Problem Code Type: ICD-10; Not Available [facility] 3 05:39:20 Venereal disease screening Completed 06/12201804/12/2019 03/01/2019 - Comments only - Aydin Mcgrath PA-C - Patient requesting STD screening. Did recently from his . Problem Code: Z11.3; Problem Code Type: ICD-10; Not Available [facility] 3 05:39:20 Lumbosacral radiculopathy Completed 201810/05/2019 09/15/2019 - Comments only - Chelseysolitario Vargas APRN - Chronic pain. Feels Gabapentin is not helpful at this time and has stopped it. This may be dose related and I have encouraged him to speak to his medical provider about options to dose increase. Problem Code: M54.16; Problem Code Type: ICD-10; Not Available [facility] 3 05:39:20 Thrombocytope sukhjinder disorder Active 201804/04/2019 - Comments only - Aydin Mcgrath PA-C - Repeat blood count 1 month from now. Suspect this was related to his alcohol use. Problem Code: D69.6; Problem Code Type: ICD-10; Not Available [facility] 3 05:39:20 Left side sciatica Active 201804/11/2019 - Comments only - Keturah Gann MD - I have not been drinking [...] M54.32; Problem Code Type: ICD-10; Not Available [facility] 3 05:39:21 Leukopenia Active 2018 Problem Code: D72.819; Problem Code Type: ICD-10; Not Available [facility] 3 05:39:21 Hypo-osmolali ty and or hyponatremia Active 201808/14/2019 - Comments only - Loni Becerra DISTRIBUTION SYSTEM OPERATOR - Secondary to alcohol abuse. We will recheck sodium next week. I have encouraged him to drink 1 glass of V8 juice daily. Problem Code: E87.1; Problem Code Type: ICD-10; Not Available [facility] 3 05:39:21 Seasonal allergic rhinitis Active 201905/04/2020 - Comments only - Loni Becerra DISTRIBUTION SYSTEM OPERATOR - His symptoms of feeling a bit [...] J30.2; Problem Code Type: ICD-10; Not Available [facility] 3 05:39:21 Sleep disorder Active 202001/17/24 - O2 ring normal overnight. DION unlikelyt though other sleep issues could be present. 02/17/2022 - Comments only - Kiah Moy DISTRIBUTION SYSTEM OPERATOR - encouraged completion of sleep study Problem Code: G47.9; Problem Code Type: ICD-10; KETURAH GANN MD [address], [place], [address] , [place] [facility] 4 10:17:04 Low back pain Active 202008/20/2021 - Comments only - Kiah Moy DISTRIBUTION SYSTEM OPERATOR - Will give short course of cyclobenzapri ne, not to operate heavy machinery if using. Try heat, ice, reviewed gentle stretching exercises, encouraged continued activity. Offered OOW note, he declines Problem Code: M54.59; Problem Code Type: ICD-10; Not Available [facility] 3 05:39:22 History of cardiovascula r disease Active 202008/20/2021 - Comments only - Kiah Moy DISTRIBUTION SYSTEM OPERATOR - Down 12 pounds since last visit. Had been running 2 miles every day all summer, now doing 8 miles on the stationary bike and eating a healthy diet. Blood pressure has been well controlled with out medication. Problem Code: Z86.79; Problem Code Type: ICD-10; Not Available [facility] 3 05:39:22 Chronic alcoholism in remission Active 202002/17/2022 - Comments only - Kiah Moy DISTRIBUTION SYSTEM OPERATOR - continues in sobriety Problem Code: F10.21; Problem Code Type: ICD-10; Not Available [facility] 3 05:39:22 Laceration of left thumb Completed [...] S61.012A; Problem Code Type: ICD-10; Not Available [facility] 3 05:39:22 Hyperlipidemi a screening Active 202102/17/2022 - Comments only - Kiah Moy DISTRIBUTION SYSTEM OPERATOR - Check lipids, is eating healthy diet, down 4.5 pounds, working a physically demanding job Problem Code: Z13.220; Problem Code Type: ICD-10; Not Available [facility] 3 05:39:23 Nocturia Active 202109/03/2022 - Comments only - Kiah Moy DISTRIBUTION SYSTEM OPERATOR - Has not yet tried increase in Flomax. Will let me know if no improvement Problem Code: R35.1; Problem Code Type: ICD-10; Not Available [facility] 3 05:39:23 Fatigue Active 2021 Problem Code: R53.83; Problem Code Type: ICD-10; Not Available [facility] 3 05:39:23 Heartburn Active 202109/03/2022 - Comments only - Kiah Moy DISTRIBUTION SYSTEM OPERATOR - Improved with d/c of caffeniated, carbonated beverage and start of omeprazole. Discussed taper off omeprazole as tolerated. Did give him one refill. Has had additional stress of 's continued infection Problem Code: R12; Problem Code Type: ICD-10; Not Available [facility] 3 05:39:23 Disorder of kidney and/or ureter Active 2022 Problem Code: N28.89; Problem Code Type: ICD-10; Not Available [facility] 3 05:39:24 Acquired renal cystic disease Active 2022 Problem Code: N28.1; Problem Code Type: ICD-10; Not Available [facility] 3 05:39:24 Alcohol abuse Completed 200106/16/2023 Not Available [facility] 3 05:39:25 Disorder of skin and/or subcutaneous tissue Completed 201503/01/2019 Problem Code: L98.9; Problem Code Type: ICD-10; Not Available [facility] 3 05:39:26 History of clinical finding in subject Completed 200103/01/2019 Problem Code: Z87.898; Problem Code Type: ICD-10; Not Available [facility] 3 05:39:29 Screening for malignant neoplasm of prostate Completed 201908/20/2021 Problem Code: Z12.5; Problem Code Type: ICD-10; Not Available [facility] 3 05:39:30 Hypertensive disorder Completed 200106/16/2023 Not Available [facility] 3 05:39:31 Pain in right hand Completed 201603/01/2019 Problem Code: M79.641; Problem Code Type: ICD-10; Not Available [facility] 3 05:39:31 Essential hypertension Completed 200108/20/2021 Problem Code: I10; Problem Code Type: ICD-10; Not Available [facility] 3 05:39:32 Alcohol dependence Completed 201703/01/2019 Problem Code: F10.259; Problem Code Type: ICD-10; Not Available [facility] 3 05:39:37 Acquired trigger finger Active [address], [place], [address] , [facility]. 4 15:21:01 Obesity Active [address], [facility] [address] , [facility] 18:05:12 Notes:*Problem Name: Penetra ting wound of orbit with or without foreign body, left eye, initial encounter *Problem Status: active *Comments: *Problem Code: S05.42xA *Problem Code Type: ICD-10 *Note Date: 03/09/2023 Problem Notes None recorded. Procedures Surgical History Date Name Laterality Status Provider Name and Address Organization Details Recorded Time 04/07/20 24 Arthrocentesis Major Joint/Bursa completed [address], [facility] [id number] [place] [address] 04/07/2024 14:44:07 11/18/19 24 Corticosteroid Injection, small completed MD Jonny [address], [facility] [id number] [place] [address] 11/18/2023 15:41:46 Imaging Results None recorded. Procedure Notes None recorded. Medical Equipment None Reported. Allergies Allergen ID Allergen Name Allergen Category Reaction Reaction Severity Criticality Documentation Date Start Date Code Code System Note Provider Name and Address Organization Details Recorded Time 88961 ibuprofen medicatio n hives moderate Not available 07/30/20232010 5640 [facility] 14:[facility]45 Medications Name Sig Start Date Stop [...] tab twice daily as needed (fill at [facility]) 08/21 completed Not Available Not Available [...] height Body mass index (BMI) Body weight Body temperature Respiratory rate Oxygen saturation Oxygen saturation in Arterial blood by Pulse oximetry Heart rate Systolic blood pressure Diastolic blood pressure Provider Name and Address Organization Details Last Updated DateTime 4 170.18 cm 33.4 kg/m2 01542.9 7 g 97.6 [degF] 18 /min 99 % 99 % 68 /min 138 mm[Hg] 76 mm[Hg] PRINCESS CHOW LPN [facility] 4 14:51:33 Date Recorded Body height Heart rate Oxygen saturation Oxygen saturation in Arterial blood by Pulse oximetry Body mass index (BMI) Body weight Systolic blood pressure Diastolic blood pressure Provider Name and Address Organization Details Last Updated DateTime 4 170.18 cm 56 /min 97 % 97 % 34.2 kg/m2 92290.5 7 g 128 mm[Hg] 76 mm[Hg] HOMA ESPINOZA MA [facility] 4 14:56:01 Date Recorded Body height Body mass index (BMI) Body weight Oxygen saturation Oxygen saturation in Arterial blood by Pulse oximetry Heart rate Systolic blood pressure Diastolic blood pressure Provider Name and Address Organization Details Last Updated DateTime 4 170.18 cm 32.3 kg/m2 98871.7 5 g 96 % 96 % 55 /min 118 mm[Hg] 66 mm[Hg] HOMA ESPINOZA MA [facility] 4 15:00:14 Date Recorded Body height Body mass index (BMI) Body weight Oxygen saturation Oxygen saturation in Arterial blood by Pulse oximetry Heart rate Systolic blood pressure Diastolic blood pressure Provider Name and Address Organization Details Last Updated DateTime 4 170.18 cm 30.4 kg/m2 69439.2 6 g 99 % 99 % 54 /min 122 mm[Hg] 86 mm[Hg] Gerardo Guerrero RN [facility] 08:49:46 Social History Question Answer Notes LastModified by Organizat ion Details LastModified Time Tobacco Smoking Status Former Smoker PRINCESS CHOW LPN null, [facility] 11/18/2023 14:52:15 When Did You Quit Smoking? [...] 76. One sister in good health. D. 2018 heart Medical History No medical history recorded. Immunizations Vaccine Type Date Status Provider Name and Address Organization Details Recorded Time Td (adult), 2 Lf tetanus toxoid, preservative free, adsorbed 03/26/2021 completed Not Available [facility] 07/30/2023 05:06:52 Tdap 11/26/2010 completed Not Available [facility] 05:06:52 Novel [id number], all formulations 10/02/2009 completed Not Available [facility] 07/30/2023 05:06:53 Influenza, split virus, trivalent, preservative 06/04/2016 completed Not Available [facility] 07/30/2023 05:06:53 Influenza, split virus, trivalent, preservative 06/21/2015 completed Not Available [facility] 07/30/2023 05:06:54 Influenza, split virus, quadrivalent, PF 06/18/2020 completed Not Available [facility] 07/30/2023 05:06:54 Influenza, split virus, quadrivalent, PF 06/25/2022 completed Not Available [facility] 07/30/2023 05:06:55 Influenza, split virus, quadrivalent, PF 07/15/2021 completed Not Available [facility] 07/30/2023 05:06:56 Influenza, split virus, quadrivalent, PF 08/10/2019 completed Not Available [facility] 07/30/2023 05:06:56 Influenza, split virus, quadrivalent, preservative 06/21/2017 completed Not Available [facility] 07/30/2023 05:06:56 Influenza, split virus, quadrivalent, preservative 07/08/2018 completed Not Available [facility] 07/30/2023 05:06:57 zoster recombinant 10/10/2020 completed Not Available [facility] 07/30/2023 05:06:57 zoster recombinant 08/07/2020 completed Not Available [facility] 07/30/2023 05:06:57 COVID-19, mRNA, LNP-S, PF, 100 mcg/0.5mL dose or 50 mcg/0.25mL dose 01/02/2022 completed Not Available [facility] 07/30/20 05:06:58 COVID-19, mRNA, LNP-S, PF, 100 mcg/0.5mL dose or 50 mcg/0.25mL dose 01/19/2021 completed Not Available [facility] 07/30/20 05:06:58 COVID-19, mRNA, LNP-S, PF, 100 mcg/0.5mL dose or 50 mcg/0.25mL dose 02/19/2021 completed Not Available [facility] 07/30/20 05:06:58 COVID-19, mRNA, LNP-S, PF, 100 mcg/0.5mL dose or 50 mcg/0.25mL dose 08/08/2021 completed Not Available [facility] 07/30/20 05:06:58 COVID-19, mRNA, LNP-S, bivalent, PF, 30 mcg/0.3 mL dose 07/08/2022 completed Not Available [facility] 07/30/2023 05:07:00 Influenza, split virus, quadrivalent, PF 07/09/2023 completed Not Available [facility] 10/01/2023 05:31:43 Past Encounters Encounter ID Performer Location Encounter Start Date Encounter Closed Date Diagnosis/Indication Diagnosis SNOMED-CT Code [id number] KETURAH GANN MD [address] [address] 11/18/2023 14:45:22 11/18/2023 15:14:36 Acquired trigger finger 3086119 Low back pain 845097423 [id number] KETURAH GANN MD [address] [address] 01/13/2024 14:47:43 01/13/2024 15:41:28 Anxiety disorder 122257772 Gout 03984114 Chronic al coholism in remission 050821658 Heartburn 43077370 Sleep disorder 45028949 Right side sciatica 3202 68435563235 Fatigue 88136987 Overweight [id number] CAROL LEÓN PA-C [address] [address] 02/17/2024 14:52:07 02/17/2024 15:13:16 Pain of knee region 1533639893 [id number] CAROL LEÓN PA-C [address] [address] 04/07/2024 08:43:17 04/07/2024 09:23:34 Obesity 686563080 Prepatella r bursitis of left knee 281165991670772 Health Concerns Section Related Observation LastModified by Organization Detai ls LastModified Time None Recorded Concern Status LastModified by Organization Details LastModified Time None Recorded Advance Directives Directive None Recorded Payers Encounter Date Sequence Insurance Name Policy Number Policy Boyd Covered Member ID Boyd Member ID Guarantor Name 11/18/2023 1 [facility] (MEDICAID) Henry D Storm [id number] Henry D Storm 01/13/2024 1 [facility] (MEDICAID) Henry D Storm [id number] Henry D Storm 02/17/2024 1 [facility] [id number] Henry D Storm [id number] Henry D Storm 04/07/2024 1 [facility] [id number] Henry D Storm [id number] Henry D Storm Notes Date Note Type Note Provider Name and Address Organization Details Recorded Time 11/18/2023 text/html HPI Notes: Here primarily because of painful left third finger which gets locked in flexed position. This happens multiple times per day, more days than not for the past few months. Waxes and wanes in severity. 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 He has not had any new symmetric swelling of MCPs or toes. Mentions in passing after we are done with the hand, stated like to ask about other issues. He has had longstanding localized low back pain worst in the morning when he tries to get moving, for instance to put his shoes on. He has had 1 bout of sciatica a year or 2 ago but that resolved after a month. He is not currently having pain in the radiates into the legs. He has never had significant numbness or weakness in the legs. He does not have pseudoclaudication and is able to work on his feet for most of the day. No acute injury. No fever night sweats or weight loss. Also mentions that he has had spells for decades in which he briefly becomes somewhat out of it, with tingling or numbness in extremities. He has had lots of workup but no answers. He is never aphasic with this, has not had severe amnesia. KETURAH GANN MD [address], [place], [address], [facility]. 11/18/2023 15:42:13 01/13/2024 text/html HPI Notes: Henry' s biggest concern are the brief spells, happening almost every morning, when he feels out of it and distant. Typically these only last a few minutes. He can hear and process what others are saying, he just has more difficulty focusing and responding to that. Patient never had overt seizures with this or LOC. His moods been good, no depression. His partner has told him that he has apneic spells at times when he sleeps. He does tend to feel fatigued during the day. Scores moderately on an [place]. No history of complete syncope. He does not have difficulty staying awake during his work but that is physical. Has gained close to 20 pounds over the winter. He does not get a lot of exercise outside of work. Knows that he needs to improve diet. He has been dry for the past 5 years, had multiple alcohol relapses prior to that. He is smoking MJ lately, 1 or 2 days/week. Had a recent gout attack, needs a refill on colchicine. He is having 2 to 3/year, does not want to consider maintenance treatment yet. MD Jonny [address], [place], [address], [facility] 01/13/2024 18:05:58 02/17/2024 text/html HPI Notes: The patient is a 63-year-old male who experienced sudden onset of right knee pain and swelling three days ago. He reports that while going down a slight incline, he entered into a little jog and landed hard on his right knee. He did not experience any bruising, cracking, popping, or twisting. The pain initially started at the back of the knee and wrapped around to the front. The patient tried applying Biofreeze, but it provided no relief. He did not have a fall and reports no pedal edema, redness, or warm areas around the knee. [address], [place], [address], [facility] 02/17/2024 15:22:01 04/07/2024 text/html HPI Notes: Kang dasilva presents with a bump on the left [...] the bump is soft and squishy feeling [address], [place], [address], [facility]. 04/07/2024 14:46:33
--- OUTSIDE RECORDS SUMMARY | 2024-04-07 14:53 | XMS_ITS | Continuity of Care Document ---
Author Organization [place] [facility] Address [address] [place] [address] Care Team Providers Care Machine Washer Name Role Phone RUBEN TOURE Dentist KIAH MOY Primary Care Provider [phone] Assessment Encounter Date Assessment Date Assessment LastModified by Organization Details LastModified Time 02/17/2024 02/17/2024 The patient's right knee pain [...] fully resolved. [id number] Not available 02/17/2024 15:13:31 Plan of Treatment Reminders Order Date Submit Date Provider Last Modified By Organization Details Last Modified Time Details Appointments Follow Up 30 2023 09:00A Chari LEÓN Not available Not available Not available Lab None recorded . Referral None recorded . Procedures None recorded . Surgeries None recorded . Imaging None recorded . Medication Orders None recorded . Patient TargetsNo targets recorded. Patient InstructionsNo instructions recorded. Reason for Referral None Reported. Problems Name Status Onset Date Resolution Date Notes Provider Name and Address Organization Details Recorded Time Right side sciatica Active 2015 Problem Code: M54.31; Problem Code Type: ICD-10; Not Available [facility] 3 05:39:18 Diabetes mellitus screening Completed 201512/17/2015 Problem Code: Z13.1; Problem Code Type: ICD-10; Not Available [facility] 3 05:39:18 Osteoarthriti s Active 2015 Problem Code: M19.90; Problem Code Type: ICD-10; Not Available [facility] 3 05:39:18 Gout Active 201303/29/2023 - Comments only - Kiah Moy ENTRY TABLE OPERATOR - s/p recent flare treated with colchicine and feeling much better. ? related to increased heat and humidity and poor hydration. Refill of colchicine given to use in the future. Encouraged good hydration while working in this heat. Avoid processed foods. Problem Code: M10.9; Problem Code Type: ICD-10; Not Available [facility] 3 05:39:18 General examination of patient Active 2016 Problem Code: Z00.8; Problem Code Type: ICD-10; Not Available [facility] 3 05:39:18 Chronic sinusitis Completed 201612/15/2016 Problem Code: J32.9; Problem Code Type: ICD-10; Not Available [facility] 3 05:39:18 Candidal balanitis Completed 201612/15/2016 Problem Code: B37.42; Problem Code Type: ICD-10; Not Available [facility] 3 05:39:19 Lateral epicondylitis of right humerus Completed 201608/27/2017 02/25/2017 - Comments only - Aydin Mcgrath PA-C - History and exam consistent with right lateral epicondylitis . Recommended home exercises. Patient instructed on stretching. Also ice, activity modification. Reviewed pathophysiolo gy and expected course. If not improving with conservative therapy then physical therapy referral. Problem Code: M77.11; Problem Code Type: ICD-10; Not Available [facility] 3 05:39:19 Anxiety disorder Active 201612/27/2019 - Comments only - Chelsey Vargas APRN - Reduction in OCD symptoms and overall worry daily. Reports response to the antidepressan t and I cautioned him about stopping it, as this would put him at risk for relapsing symptoms. Problem Code: F41.9; Problem Code Type: ICD-10; Not Available [facility] 3 05:39:19 Moderate major depression, single episode Active 201712/27/2019 - Comments only - Chelsey Vargas APRN - Reports he is realtively stable at this time. Denies ETOH use for several months and he is working He has declined counseling and AA meetings atre only on line currently. will send him the [employer] L[employer] number for resources. He continues Mirtazapine and feels it has helped with mood and anxiety. OCD symptoms reduced and he feels he can do his job well. His daughter is living with him and is a support in some ways. Problem Code: F32.1; Problem Code Type: ICD-10; Not Available [facility] 3 05:39:19 Rupture of rotator cuff of right shoulder Completed 201709/27/2018 01/25/2018 - Comments only - Aydin Mcgrath PA-C - Suspect rotator cuff tendinitis. Referral to physical therapy. If not better then consider injection and imaging. Problem Code: M75.101; Problem Code Type: ICD-10; Not Available [facility] 3 05:39:19 Benign prostatic hyperplasia Active 2017 Problem Code: N40.0; Problem Code Type: ICD-10; Not Available [facility] 3 05:39:20 Herpesvirus infection Active 201708/24/2018 - Comments only - Keturah Gann MD - Suspect that his impetigo is actually herpetic. However been unroofed for too long to get culture. Will get serology although I told him there are limitations to that. Too late for acyclovir to be helpful for this course. Problem Code: A60.00; Problem Code Type: ICD-10; Not Available [facility] 3 05:39:20 Lesion of left femoral nerve Completed 201806/15/2019 12/13/2018 - Comments only - Aydin Mcgrath PA-C - Suspect this is from pressure of sitting for long periods of time. Should resolve over 2-4 weeks. Recheck as needed. He is due for annual review. He will schedule. Problem Code: G57.22; Problem Code Type: ICD-10; Not Available [facility] 3 05:39:20 Venereal disease screening Completed 201804/12/2019 03/01/2019 - Comments only - Aydin Mcgrath PA-C - Patient requesting STD screening. Did recently from his . Problem Code: Z11.3; Problem Code Type: ICD-10; Not Available [facility] 3 05:39:20 Lumbosacral radiculopathy Completed 201810/05/2019 09/15/2019 - Comments only - Chelsey Newtontemo LUTZ - Chronic pain. Feels Gabapentin is not helpful at this time and has stopped it. This may be dose related and I have encouraged him to speak to his medical provider about options to dose increase. Problem Code: M54.16; Problem Code Type: ICD-10; Not Available [facility] 3 05:39:20 Thrombocytope sukhjinder disorder Active 201804/04/2019 - Comments only - Aydin Mcgrath PA-C - Repeat blood count 1 month from now. Suspect this was related to his alcohol use. Problem Code: D69.6; Problem Code Type: ICD-10; Not Available [facility] 3 05:39:20 Left side sciatica Active 201804/11/2019 [...] M54.32; Problem Code Type: ICD-10; Not Available [facility] 3 05:39:21 Leukopenia Active 2018 Problem Code: D72.819; Problem Code Type: ICD-10; Not Available [facility] 3 05:39:21 Hypo-osmolali ty and or hyponatremia Active 201808/14/2019 - Comments only - Loni Becerra ENTRY TABLE OPERATOR - Secondary to alcohol abuse. We will recheck sodium next week. I have encouraged him to drink 1 glass of V8 juice daily. Problem Code: E87.1; Problem Code Type: ICD-10; Not Available [facility] 3 05:39:21 Seasonal allergic rhinitis Active 201905/04/2020 - Comments only - Loni Becerra ENTRY TABLE OPERATOR - His symptoms of feeling a [...] J30.2; Problem Code Type: ICD-10; Not Available [facility] 3 05:39:21 Sleep disorder Active 202001/17/24 - O2 ring normal overnight. DION unlikelyt though other sleep issues could be present. 02/17/2022 - Comments only - Kiah Moy ENTRY TABLE OPERATOR - encouraged completion of sleep study Problem Code: G47.9; Problem Code Type: ICD-10; KETURAH GANN MD [address], [place], [address] , [place] - [facility] 4 10:17:04 Low back pain Active 202008/20/2021 - Comments only - Kiah Moy ENTRY TABLE OPERATOR - Will give short course of cyclobenzapri ne, not to operate heavy machinery if using. Try heat, ice, reviewed gentle stretching exercises, encouraged continued activity. Offered OOW note, he declines Problem Code: M54.59; Problem Code Type: ICD-10; Not Available [facility] 3 05:39:22 History of cardiovascula r disease Active 202008/20/2021 - Comments only - Kiah Moy ENTRY TABLE OPERATOR - Down 12 pounds since last visit. Had been running 2 miles every day all summer, now doing 8 miles on the stationary bike and eating a healthy diet. Blood pressure has been well controlled with out medication. Problem Code: Z86.79; Problem Code Type: ICD-10; Not Available [facility] 3 05:39:22 Chronic alcoholism in remission Active 202002/17/2022 - Comments only - Kiah Moy ENTRY TABLE OPERATOR - continues in sobriety Problem Code: F10.21; Problem Code Type: ICD-10; Not Available [facility] 3 05:39:22 Laceration of left thumb Completed [...] S61.012A; Problem Code Type: ICD-10; Not Available [facility] 3 05:39:22 Hyperlipidemi a screening Active 202102/17/2022 - Comments only - Kiah Moy ENTRY TABLE OPERATOR - Check lipids, is eating healthy diet, down 4.5 pounds, working a physically demanding job Problem Code: Z13.220; Problem Code Type: ICD-10; Not Available [facility] 3 05:39:23 Nocturia Active 202109/03/2022 - Comments only - Kiah Moy ENTRY TABLE OPERATOR - Has not yet tried increase in Flomax. Will let me know if no improvement Problem Code: R35.1; Problem Code Type: ICD-10; Not Available [facility] 3 05:39:23 Fatigue Active 2021 Problem Code: R53.83; Problem Code Type: ICD-10; Not Available [facility] 3 05:39:23 Heartburn Active 202109/03/2022 - Comments only - Kiah Moy ENTRY TABLE OPERATOR - Improved with d/c of caffeniated, carbonated beverage and start of omeprazole. Discussed taper off omeprazole as tolerated. Did give him one refill. Has had additional stress of 's continued infection Problem Code: R12; Problem Code Type: ICD-10; Not Available [facility] 3 05:39:23 Disorder of kidney and/or ureter Active 2022 Problem Code: N28.89; Problem Code Type: ICD-10; Not Available [facility] 3 05:39:24 Acquired renal cystic disease Active 2022 Problem Code: N28.1; Problem Code Type: ICD-10; Not Available [facility] 3 05:39:24 Alcohol abuse Completed 200106/16/2023 Not Available [facility] 3 05:39:25 Disorder of skin and/or subcutaneous tissue Completed 201503/01/2019 Problem Code: L98.9; Problem Code Type: ICD-10; Not Available [facility] 3 05:39:26 History of clinical finding in subject Completed 200103/01/2019 Problem Code: Z87.898; Problem Code Type: ICD-10; Not Available [facility] 3 05:39:29 Screening for malignant neoplasm of prostate Completed 201908/20/2021 Problem Code: Z12.5; Problem Code Type: ICD-10; Not Available [facility] 3 05:39:30 Hypertensive disorder Completed 200106/16/2023 Not Available [facility] 3 05:39:31 Pain in right hand Completed 201603/01/2019 Problem Code: M79.641; Problem Code Type: ICD-10; Not Available [facility] 3 05:39:31 Essential hypertension Completed 200108/20/2021 Problem Code: I10; Problem Code Type: ICD-10; Not Available [facility] 3 05:39:32 Alcohol dependence Completed 201703/01/2019 Problem Code: F10.259; Problem Code Type: ICD-10; Not Available [facility] 3 05:39:37 Acquired trigger finger Active 2023 KETURAH GANN MD [address], [place], [address] , [facility]. 4 15:21:01 Obesity Active [address], [facility] [address] , [facility] 18:05:12 Notes:*Problem Name: Penetra ting wound of orbit with or without foreign body, left eye, initial encounter *Problem Status: active *Comments: *Problem Code: S05.42xA *Problem Code Type: ICD-10 *Note Date: 03/09/2023 Problem Notes None recorded. Procedures Surgical History Date Name Laterality Status Provider Name and Address Organization Details Recorded Time 04/07/20 24 Arthrocentesis Major Joint/Bursa completed [address], [facility] [id number] [place] [address] 04/07/2024 14:44:07 11/18/19 Corticosteroid Injection, small completed MD Jonny [address], [facility] [id number] [place] [address] 11/18/2023 15:41:46 Imaging Results None recorded. Procedure Notes None recorded. Medical Equipment None Reported. Allergies Allergen ID Allergen Name Allergen Category Reaction Reaction Severity Criticality Documentation Date Start Date Code Code System Note Provider Name and Address Organization Details Recorded Time 71998 ibuprofen medicatio n hives moderate Not available 07/30/20232010 5640 Rx[facility] 14:[facility]45 Medications Name Sig Start Date [...] tab twice daily as needed (fill at [facility]) 08/21 completed Not Available Not Available [...] Updated DateTime 4 170.18 cm 32.3 kg/m2 46265.7 5 g 96 % 96 % 55 /min 118 mm[Hg] 66 mm[Hg] HOMA ESPINOZA MA [facility] 4 15:00:14 Social History Question Answer Notes LastModified by Organizat ion Details LastModified Time Tobacco Smoking Status Former Smoker PRINCESS CHOW LPN null, [facility] 11/18/2023 14:52:15 When Did You Quit [...] preservative free, adsorbed 03/26/2021 completed Not Available [facility] 07/30/2023 05:06:52 Tdap 11/26/2010 completed Not Available [facility] 05:06:52 Novel [id number], all formulations 10/02/2009 completed Not Available [facility] 07/30/2023 05:06:53 Influenza, split virus, trivalent, preservative 06/04/2016 completed Not Available [facility] 07/30/2023 05:06:53 Influenza, split virus, trivalent, preservative 06/21/2015 completed Not Available [facility] 07/30/2023 05:06:54 Influenza, split virus, quadrivalent, PF 06/18/2020 completed Not Available [facility] 07/30/2023 05:06:54 Influenza, split virus, quadrivalent, PF 06/25/2022 completed Not Available [facility] 07/30/2023 05:06:55 Influenza, split virus, quadrivalent, PF 07/15/2021 completed Not Available [facility] 07/30/2023 05:06:56 Influenza, split virus, quadrivalent, PF 08/10/2019 completed Not Available [facility] 07/30/2023 05:06:56 Influenza, split virus, quadrivalent, preservative 06/21/2017 completed Not Available [facility] 07/30/2023 05:06:56 Influenza, split virus, quadrivalent, preservative 07/08/2018 completed Not Available [facility] 07/30/2023 05:06:57 zoster recombinant 10/10/[address] [facility] 07/30/2023 05:06:57 zoster recombinant 08/07/[address] [facility] 07/30/2023 05:06:57 COVID-19, mRNA, LNP-S, PF, 100 mcg/0.5mL dose or 50 mcg/0.25mL dose 01/02/2022 completed Not Available [facility] 07/30/20 05:06:58 COVID-19, mRNA, LNP-S, PF, 100 mcg/0.5mL dose or 50 mcg/0.25mL dose 01/19/2021 completed Not Available [facility] 07/30/20 05:06:58 COVID-19, mRNA, LNP-S, PF, 100 mcg/0.5mL dose or 50 mcg/0.25mL dose 02/19/2021 completed Not Available [facility] 07/30/20 05:06:58 COVID-19, mRNA, LNP-S, PF, 100 mcg/0.5mL dose or 50 mcg/0.25mL dose 08/08/2021 completed Not Available [facility] 07/30/20 05:06:58 COVID-19, mRNA, LNP-S, bivalent, PF, 30 mcg/0.3 mL dose 07/08/2022 completed Not Available [facility] 07/30/2023 05:07:00 Influenza, split virus, quadrivalent, PF 07/09/2023 completed Not Available [facility] 10/01/2023 05:31:43 Past Encounters Encounter ID Performer Location Encounter Start Date Encounter Closed Date Diagnosis/Indication Diagnosis SNOMED-CT Code [id number] CAROL LEÓN PA-C [address] [address] 02/17/2024 14:52:07 02/17/2024 15:13:16 Pain of knee region [id number] Health Concerns Section Related Observation LastModified by Organization Detai ls LastModified Time None Recorded Concern Status LastModified by Organization Details LastModified Time None Recorded Payers Encounter Date Sequence Insurance Name Policy Number Policy Boyd Covered Member ID Boyd Member ID Guarantor Name 02/17/2024 1 [facility] [place] [id number] Henry Burnett [id number] Henry Burnett Notes Date Note Type Note Provider Name and Address Organization Details Recorded Time 02/17/2024 text/html HPI Notes: The patient is [...] areas around the knee. [address], [place], [address], [facility] 02/17/2024 15:22:01
--- OUTSIDE RECORDS SUMMARY | 2024-04-07 14:53 | XMS_ITS | Continuity of Care Document ---
Author Organization [facility] Address [address] [place] [address] Care Team Providers Care Operations Logistics Analyst Name Role Phone RUBEN TOURE Dentist KIAH CLAYTON Primary Care Provider Assessment No assessment recorded. Plan of Treatment Reminders Order Date Submit Date Provider Last Modified By Organization Details Last Modified Time Details Appointments Follow Up 2023 09:00A Chari LEÓN Not available Not available Not available Lab uric acid, serum or plasma [address] [facility] (Registration ), [address] [place] [address] [place], [address], 01/18/2024 08:16:25 glucose, QN [mass/vol ume], serum or plasma [address] [facility] (Registration ), [address] [place] [address] [place], [address], 01/18/2024 08:16:54 TSH, serum or plasma [address] [facility] (Registration ), [address] [place] [address] [place], [address], 01/18/2024 08:16:39 CBC 2023 024 [place] [facility] (Registration ), [address] [place] [address] [place], [address], 01/13/2024 19:22:01 Referral None recorded. Procedures None recorded. Surgeries None recorded. Imaging None recorded. Medication Orders colchicin e 0.6 mg tablet 2023 024 [facility] [id number], [address] [facility], [place], [address], 01/13/2024 15:14:19 Patient TargetsNo targets recorded. Patient Instructions Encounter Date Encounter Id Patient Instructions Last Modified By Organization Details Last Modified Time 01/13/2024 [id number] diet [email or web address] Not available 01/12 18:05:38 When You Want to Lose Weight: Care Instructions [email or web address] Not available 01/13/2024 18:05:38 Reason for Referral None Reported. 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 ? related to increased heat and humidity and poor hydration. Refill of colchicine given to use in the future. Encouraged good hydration while working in this heat. Avoid processed foods. Problem Code: M10.9; Problem Code Type: ICD-10; Not Available [facility] 3 05:39:18 General examination of patient Active 2016 Problem Code: Z00.8; Problem Code Type: ICD-10; Not Available [facility] 3 05:39:18 Chronic sinusitis Completed 201612/15/2016 Problem Code: J32.9; Problem Code Type: ICD-10; Not Available [facility] 3 05:39:18 Candidal balanitis Completed 201612/15/2016 Problem Code: B37.42; Problem Code Type: ICD-10; Not Available [facility] 3 05:39:19 Lateral epicondylitis of right humerus [...] Code Type: ICD-10; Not Available [facility] 3 05:39:19 Anxiety disorder Active 201612/27/2019 - Comments only - Chelsey Vargas APRN - Reduction in OCD symptoms and overall worry daily. Reports response to the antidepressan t and I cautioned him about stopping it, as this would put him at risk for relapsing symptoms. Problem Code: F41.9; Problem Code Type: ICD-10; Not Available [facility] 3 05:39:19 Moderate major depression, single episode Active 201712/27/2019 - Comments only - Chelsey Vargas APRN - Reports he is realtively stable at this time. Denies ETOH use for several months and he is working He has declined counseling and AA meetings atre only on line currently. will send him the [employer] LINK number for resources. He continues Mirtazapine and feels it has helped with mood and anxiety. OCD symptoms reduced and he feels he can do his job well. His daughter is living with him and is a support in some ways. Problem Code: F32.1; Problem Code Type: ICD-10; Not Available [facility] 3 05:39:19 Rupture of rotator cuff of right shoulder Completed 201709/27/2018 01/25/2018 - Comments only - Aydin Mcgrath PA-C - Suspect rotator cuff tendinitis. Referral to physical therapy. If not better then consider injection and imaging. Problem Code: M75.101; Problem Code Type: ICD-10; Not Available [facility] 3 05:39:19 Benign prostatic hyperplasia Active 2017 Problem Code: N40.0; Problem Code Type: ICD-10; Not Available [facility] 3 05:39:20 Herpesvirus infection Active 201708/24/2018 - Comments only - Keturah Mendoza MD - Suspect that his impetigo is actually herpetic. However been unroofed for too long to get culture. Will get serology although I told him there are limitations to that. Too late for acyclovir to be helpful for this course. Problem Code: A60.00; Problem Code Type: ICD-10; Not Available [facility] 3 05:39:20 Lesion of left femoral nerve Completed 201806/15/2019 12/13/2018 - Comments only - Aydin Mcgrath PA-C - Suspect this is from pressure of sitting for long periods of time. Should resolve over 2-4 weeks. Recheck as needed. He is due for annual review. He will schedule. Problem Code: G57.22; Problem Code Type: ICD-10; Not Available [facility] 3 05:39:20 Venereal disease screening Completed 201804/12/2019 03/01/2019 - Comments only - Aydin Mcgrath PA-C - Patient requesting STD screening. Did recently from his . Problem Code: Z11.3; Problem Code Type: ICD-10; Not Available [facility] 3 05:39:20 Lumbosacral radiculopathy Completed 201810/05/2019 09/15/2019 - Comments only - Chelsey Vargas APRN - Chronic pain. Feels Gabapentin is not helpful at this time and has stopped it. This may be dose related and I have encouraged him to speak to his medical provider about options to dose increase. Problem Code: M54.16; Problem Code Type: ICD-10; Not Available [facility] 3 05:39:20 Thrombocytope sukhjinder disorder Active 201804/04/2019 - Comments only - Aydin Mcgrath PA-C - Repeat blood count 1 month from now. Suspect this was related to his alcohol use. Problem Code: D69.6; Problem Code Type: ICD-10; Not Available [facility] 3 05:39:20 Left side sciatica Active 201804/11/2019 [...] M54.32; Problem Code Type: ICD-10; Not Available [facility] 3 05:39:21 Leukopenia Active 2018 Problem Code: D72.819; Problem Code Type: ICD-10; Not Available [facility] 3 05:39:21 Hypo-osmolali ty and or hyponatremia Active 201808/14/2019 - Comments only - Loni Becerra PLISSE MACHINE OPERATOR HELPER - Secondary to alcohol abuse. We will recheck sodium next week. I have encouraged him to drink 1 glass of V8 juice daily. Problem Code: E87.1; Problem Code Type: ICD-10; Not Available [facility] 3 05:39:21 Seasonal allergic rhinitis Active 201905/04/2020 - Comments only - Loni Becerra PLISSE MACHINE OPERATOR HELPER - His symptoms of feeling a bit [...] J30.2; Problem Code Type: ICD-10; Not Available [facility] 3 05:39:21 Sleep disorder Active 202001/17/24 - O2 ring normal overnight. DION unlikelyt though other sleep issues could be present. 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 Try heat, ice, reviewed gentle stretching exercises, encouraged continued activity. Offered OOW note, he declines Problem Code: M54.59; Problem Code Type: ICD-10; Not Available [facility] 3 05:39:22 History of cardiovascula r disease Active 202008/20/2021 - Comments only - Kiahmarci Clayton PLISSE MACHINE OPERATOR HELPER - Down 12 pounds since last visit. Had been running 2 miles every day all summer, now doing 8 miles on the stationary bike and eating a healthy diet. Blood pressure has been well controlled with out medication. 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 Discussed taper off omeprazole as tolerated. Did give him one refill. 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; Problem Code Type: ICD-10; Not Available [facility] 3 05:39:24 Alcohol abuse Completed 200106/16/2023 Not Available [facility] 3 05:39:25 Disorder of skin and/or subcutaneous tissue Completed 201503/01/2019 Problem Code: L98.9; Problem Code Type: ICD-10; Not Available [facility] 3 05:39:26 History of clinical finding in subject Completed 200103/01/2019 Problem Code: Z87.898; Problem Code Type: ICD-10; Not Available [facility] 3 05:39:29 Screening for malignant neoplasm of prostate Completed 201908/20/2021 Problem Code: Z12.5; Problem Code Type: ICD-10; Not Available [facility] 3 05:39:30 Hypertensive disorder Completed 200106/16/2023 Not Available [facility] 3 05:39:31 Pain in right hand Completed 201603/01/2019 Problem Code: M79.641; Problem Code Type: ICD-10; Not Available [facility] 3 05:39:31 Essential hypertension Completed 200108/20/2021 Problem Code: I10; Problem Code Type: ICD-10; Not Available [facility] 3 05:39:32 Alcohol dependence Completed 201703/01/2019 Problem Code: F10.259; Problem Code Type: ICD-10; Not Available [facility] 3 05:39:37 Acquired trigger finger Active [address], [facility] [address] , [facility] 4 15:21:01 Obesity Active [address], [place] [id number] , [facility] 4 18:05:12 Notes:*Problem Name: Penetra ting wound of orbit with or without foreign body, left eye, initial encounter *Problem Status: active *Comments: *Problem Code: S05.42xA *Problem Code Type: ICD-10 *Note Date: 03/09/2023 Problem Notes None recorded. Procedures Surgical History Date Name Laterality Status Provider Name and Address Organization Details Recorded Time 04/07/20 24 Arthrocentesis Major Joint/Bursa completed [address], [facility] [address], [facility] 04/07/2024 14:44:07 11/18/19 24 Corticosteroid Injection, small completed MD [address]ny [address], [facility] [address], [facility] 11/18/2023 15:41:46 Imaging Results None recorded. Procedure Notes None recorded. Medical Equipment None Reported. Allergies Allergen ID Allergen Name Allergen Category Reaction Reaction Severity Criticality Documentation Date Start Date Code Code System Note Provider Name and Address Organization Details Recorded Time 95543 ibuprofen medicatio n hives moderate Not available 07/30/20232010 5640 RxNorm urtic aria Pat bains [facility] 14:45:45 Medications Name Sig Start Date Stop [...] tab twice daily as needed (fill at [facility]) 08/21 completed Not Available Not Available [...] Not Available Vitals Date Recorded Body height Heart rate Oxygen saturation Oxygen saturation in Arterial blood by Pulse oximetry Body mass index (BMI) Body weight Systolic blood pressure Diastolic blood pressure Provider Name and Address Organization Details Last Updated DateTime 4 170.18 cm 56 /min 97 % 97 % 34.2 kg/m2 09826.5 7 g 128 mm[Hg] 76 mm[Hg] HOMA ESPINOZA [place] [facility] 4 14:56:01 Social History Question Answer Notes LastModified by Organizat ion Details LastModified Time Tobacco Smoking Status Former Smoker PRINCESS GERALDO, [place] null, [place] - [facility]. 11/18/2023 14:52:15 When Did You Quit Smoking? [...] preservative free, adsorbed 03/26/2021 completed Not Available [facility] 07/30/2023 05:06:52 Tdap 11/26/2010 completed Not Available [facility] 05:06:52 Novel [id number]-[id number], all formulations 10/02/2009 completed Not Available [facility] 07/30/2023 05:06:53 Influenza, split virus, trivalent, preservative 06/04/2016 completed Not Available [facility] 07/30/2023 05:06:53 Influenza, split virus, trivalent, preservative 06/21/2015 completed Not Available [facility] 07/30/2023 05:06:54 Influenza, split virus, quadrivalent, PF 06/18/2020 completed Not Available [facility] 07/30/2023 05:06:54 Influenza, split virus, quadrivalent, PF 06/25/2022 completed Not Available [facility] 07/30/2023 05:06:55 Influenza, split virus, quadrivalent, PF 07/15/2021 completed Not Available [facility] 07/30/2023 05:06:56 Influenza, split virus, quadrivalent, PF 08/10/2019 completed Not Available [facility] 07/30/2023 05:06:56 Influenza, split virus, quadrivalent, preservative 06/21/2017 completed Not Available [facility] 07/30/2023 05:06:56 Influenza, split virus, quadrivalent, preservative 07/08/2018 completed Not Available [facility] 07/30/2023 05:06:57 zoster recombinant 10/10/[address] [facility] 07/30/2023 05:06:57 zoster recombinant 08/07/[address] [facility] 07/30/2023 05:06:57 COVID-19, mRNA, LNP-S, PF, 100 mcg/0.5mL dose or 50 mcg/0.25mL dose 01/02/2022 completed Not Available [facility] 07/30/20 05:06:58 COVID-19, mRNA, LNP-S, PF, 100 mcg/0.5mL dose or 50 mcg/0.25mL dose 01/19/2021 completed Not Available [facility] 07/30/20 05:06:58 COVID-19, mRNA, LNP-S, PF, 100 mcg/0.5mL dose or 50 mcg/0.25mL dose 02/19/2021 completed Not Available [facility] 07/30/20 05:06:58 COVID-19, mRNA, LNP-S, PF, 100 mcg/0.5mL dose or 50 mcg/0.25mL dose 08/08/2021 completed Not Available [facility] 07/30/20 05:06:58 COVID-19, mRNA, LNP-S, bivalent, PF, 30 mcg/0.3 mL dose 07/08/2022 completed Not Available [facility] 07/30/2023 05:07:00 Influenza, split virus, quadrivalent, PF 07/09/2023 completed Not Available [facility] 10/01/2023 05:31:43 Past Encounters Encounter ID Performer Location Encounter Start Date Encounter Closed Date Diagnosis/Indication Diagnosis SNOMED-CT Code [id number] KETURAH MENDOZA MD [address] [address] 01/13/2024 14:47:43 01/13/2024 15:41:28 Anxiety disorder 717576397 Gout 60650845 Chronic al coholism in remission 800926795 Heartburn 12815990 Sleep disorder 37849209 Right side sciatica 3202 [id number] Fatigue 69672207 Overweight 344094524 Health Concerns Section Related Observation LastModified by Organization Detai ls LastModified Time None Recorded Concern Status LastModified by Organization Details LastModified Time None Recorded Payers Encounter Date Sequence Insurance Name Policy Number Policy Boyd Covered Member ID Boyd Member ID Guarantor Name 01/13/2024 1 [facility] (MEDICAID) Henry Burnett [id number] Henry Burnett Notes Date Note Type Note Provider Name and Address Organization Details Recorded Time 01/13/2024 text/html HPI Notes: Henry' s biggest [...] during the day. Scores moderately on an [place]. No history of complete syncope. He does [...] not want to consider maintenance treatment yet. KETURAH MENDOZA MD [address], [place], [address], [facility]. 01/13/2024 18:05:58
== END 2024-04-07 14:52 | disposition home or self-care (01) ==
LOC: NCHCN 14:51
PROVIDERS: PCP Physician Assistant; Visit Provider Physician Assistant
DX: M70.42 Prepatellar bursitis, left knee (principal)
CPT/HCPCS: 87070; 87205

== ENCOUNTER 2025-05-16 16:40 | Outpatient (REF) | payer OTHER, SELFPAY ==
[2025-05-16 20:42] LABS: HCT 43.5 % (40.0-50.0); HGB 15.4 g/dL (13.5-17.5); MCH 28.7 pg (27.0-33.0); MCHC 35.4 % (32.0-36.0); MCV 81 fL (80-95); MPV 12.0 fL (8.0-11.0); Platelet Count 143 10^3/uL (130-400); RBC 5.36 10^6/uL (4.36-5.78); RDW 12.9 % (11.8-14.1); RDW-SD 37.9 fL; WBC 6.95 10^3/uL (4.4-10.8)
[2025-05-16 20:58] LABS: ALT 39 U/L (16-63); AST 39 U/L (15-37); Albumin 4.1 g/dL (3.4-5.0); Alkaline Phosphatase 63 U/L (46-116); Anion Gap 7.3 mmol/L (3-11); BUN 10 mg/dL (7-18); Bilirubin, Total 1.0 mg/dL (0.2-1.0); CO2 28.7 mmol/L (21.0-32.0); Calcium 9.4 mg/dL (8.5-10.1); Chloride 93 mmol/L (98-107); Estimated GFR 95.97 (mL/min/1.73m2); Glucose 140 mg/dL (74-106); Potassium 4.2 mmol/L (3.5-5.1); Sodium 129 mmol/L (136-145); Total Protein 7.4 g/dL (6.4-8.2)
== END 2025-05-16 16:41 | disposition home or self-care (01) ==
LOC: NCHCN 16:40
PROVIDERS: PCP Physician Assistant; Visit Provider Internal Medicine
DX: K70.10 Alcoholic hepatitis without ascites (principal)
CPT/HCPCS: 80053; 85027